=== PATIENT | female | born 1950 ===

== ENCOUNTER 2023-04-10 10:59 | Inpatient (IN) | payer OTHER ==
[~2023-04-10] VITALS: Ht 165.1 cm; Wt 72.6 kg
[2023-04-11] MEDS ORDERED: TOPROL XL50 M1 PO (14:52)
[2023-04-11] MEDS ORDERED: ALTACE5 MG PO (14:52)
[2023-04-11] MEDS ORDERED: CHILDREN'S ASPI81 MG PO (14:52)
[2023-04-11] MEDS ORDERED: PROTONIX40 MG PO (14:52)
[2023-04-11] MEDS ORDERED: FOLIC ACID0.8 M1 PO (14:53)
[2023-04-11] MEDS ORDERED: VOLTAREN ARTHRI20 GM (14:53)
[2023-04-17] MEDS ORDERED: ALENDRONATE SOD70 MG (15:19)
[2023-04-17] MEDS ORDERED: LEVOTHYROXINE25 MC1 (15:19)
[2023-04-17] MEDS ORDERED: ATORVASTATIN CA20 MG (15:19)
[2023-04-17] MEDS ORDERED: TAMSULOSIN HCL0.4 MG (15:19)
[2023-04-17 20:58] LABS: HEMATOCRIT 37.5 % (36.0-45.00); HEMOGLOBIN 12.4 g/dL (12.0-15.00); MEAN CELL VOLUME 86.9 fL (80.00-100.00); MEAN CORPUSCULAR HEMOGLOBIN 28.7 pg (27.00-32.0); PLATELET COUNT 220 K/uL (150-450); RED BLOOD COUNT 4.32 M/uL (4.00-6.00); RED CELL DISTRIBUTION WIDTH 15.6 % (11.5-14.5)
[2023-04-18 06:44] LABS: HEMATOCRIT 35.2 % (36.0-45.00); HEMOGLOBIN 11.5 g/dL (12.0-15.00); MEAN CELL VOLUME 87.8 fL (80.00-100.00); MEAN CORPUSCULAR HEMOGLOBIN 28.7 pg (27.00-32.0); MEAN CORPUSCULAR HGB CONC 32.7 g/dl (32.0-36.0); PLATELET COUNT 214 K/uL (150-450); RED BLOOD COUNT 4.01 M/uL (4.00-6.00); RED CELL DISTRIBUTION WIDTH 15.3 % (11.5-14.5)
[2023-04-18 07:37] LABS: ALBUMIN 2.7 gm/dL (3.4-5.0); CALCIUM 7.9 mg/dL (8.5-10.1); CREATININE SERUM 0.72 mg/dL (0.55-1.02); GFR 79.62; POTASSIUM 3.83 mEq/L (3.5-5.1)
[2023-04-19 07:19] LABS: HEMATOCRIT 35.6 % (36.0-45.00); HEMOGLOBIN 11.6 g/dL (12.0-15.00); MEAN CELL VOLUME 88.3 fL (80.00-100.00); MEAN CORPUSCULAR HEMOGLOBIN 28.7 pg (27.00-32.0); MEAN CORPUSCULAR HGB CONC 32.5 g/dl (32.0-36.0); PLATELET COUNT 203 K/uL (150-450); RED BLOOD COUNT 4.03 M/uL (4.00-6.00); RED CELL DISTRIBUTION WIDTH 15.3 % (11.5-14.5)
[2023-04-19 07:36] LABS: CALCIUM 8.2 mg/dL (8.5-10.1); CREATININE SERUM 0.64 mg/dL (0.55-1.02); GFR 91.22; POTASSIUM 3.66 mEq/L (3.5-5.1)
== END 2023-04-19 11:58 | disposition home or self-care (01) | DRG 331 ==
LOC: O/R 04-17 07:45 → SURH 04-17 09:15 → SURG 04-17 17:13
PROVIDERS: Internal Medicine Geriatric Medicine; ADMIT Colon & Rectal Surgery; ATTEND Colon & Rectal Surgery
PROC: 0DBP4ZZ Excision of Rectum, Percutaneous Endoscopic Approach (ICD-10-PCS; 2023-04-17)
PROC: 8E0W4CZ Robotic Assisted Procedure of Trunk Region, Percutaneous Endoscopic Approach (ICD-10-PCS; 2023-04-17)
PROC: 0DTN4ZZ Resection of Sigmoid Colon, Percutaneous Endoscopic Approach (ICD-10-PCS; principal; 2023-04-17 15:00)
DX: K57.30 Diverticulosis of large intestine without perforation or abscess without bleeding (principal); K58.0 Irritable bowel syndrome with diarrhea; K57.32 Diverticulitis of large intestine without perforation or abscess without bleeding; K64.2 Third degree hemorrhoids; N73.6 Female pelvic peritoneal adhesions (postinfective)
CPT/HCPCS: 44207; 44213; S2900